=== PATIENT | male | born 1975 | race Caucasian/White ===

== ENCOUNTER → 2022-10-16 15:01 | Outpatient (BNVA) | payer OTHER, SELFPAY | PROVIDERS: Family Provider Nurse Practitioner Family; PCP Nurse Practitioner Family; Visit Provider Nurse Practitioner | DX: Z02.83 Encounter for blood-alcohol and blood-drug test (principal); M25.562 Pain in left knee | CPT/HCPCS: 73562; 80307 ==

== ENCOUNTER 2022-12-31 12:46 | Emergency (ER) | payer SELFPAY ==
[2022-12-31 13:01] VITALS: BP 128/76; PULSE 77; RESP 16; TEMP 36.8; O2SAT 97; BMI 34.0
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
[2022-12-31 13:43] VITALS: BP 124/84; PULSE 77; RESP 18; O2SAT 98
[2022-12-31 14:06] LABS: Basophils # 0.1 10^3/uL (0.0-0.1); Basophils % 0.4 %; Eosinophils % 0.2 %; Hematocrit 46.5 % (42.0-52.0); Hemoglobin 16.3 g/dL (11.7-16.6); Lymphocytes # 1.3 10^3/uL (0.8-4.8); Lymphocytes % 10.1 %; Mean Corpuscular HGB Conc 35.1 g/dL (30.0-36.0); Mean Corpuscular Hemoglobin 33.3 pg (28.0-34.0); Mean Corpuscular Volume 95.1 fl (80-94); Mean Platelet Volume 10.8 fL (7.4-10.4); Monocytes # 0.8 10^3/uL (0.2-0.9); Monocytes % 6.6 %; Neutrophils # 10.24 10^3/uL (1.8-7.7); Neutrophils % 82.2 %; Nucleated Red Blood Cells % 0 %; Platelet Count 245 10^3/cmm (130-400); Red Blood Count 4.89 10^6/uL (4.1-5.3); Red Cell Distribution Width 13.3 % (12.1-15.1); White Blood Count 12.5 10^3/uL (4.0-10.0)
[2022-12-31 14:31] VITALS: PULSE 69; RESP 16; O2SAT 99
[2022-12-31 14:33] LABS: Anion Gap 12.9 (5-19); Blood Urea Nitrogen 12 mg/dL (6-20); Calcium 9.6 mg/dL (8.5-10.5); Carbon Dioxide 28 mmol/L (22-29); Chloride 103 mmol/L (98-107); Glomerular Filtration Rate 80.8 mL/min (90-130); Glucose 102 mg/dL (65-115); Osmolality Calculated 290 mOsm/kg (285-295); Potassium 3.9 mmol/L (3.5-5.1); Sodium 140 mmol/L (136-145)
[2022-12-31 14:37] LABS: Add Urine Microscopic? YES; Bilirubin Urine Neg (Negative); Blood Urine Neg (Negative); Glucose Urine UA Norm (Normal); Ketones Urine Negative (Negative); Leukocyte Esterase Urine Negative (Negative); Nitrate Urine Negative (Negative); Protein Urine Trace (Negative); Specific Gravity, Urine 1.025 (1.005-1.030); Urine Appearance Hazy (CLEAR); Urine Color Yellow (Yellow); Urobilinogen Urine Norm (Negative); pH Urine 5 (5-7)
[2022-12-31 14:42] LABS: Amorphous Sediment Urine 2+ /hpf; Bacteria Urine TRACE /hpf; Hyaline Casts Urine 0-4 /lpf; Mucus Urine 3+ /hpf; RBC Urine 0-4 /hpf (0-2); Squamous Epithelial Cell Urine 0-4 /hpf (0-5); WBC Urine 0-4 /hpf (0-5)
[2022-12-31 14:43] LABS: Add Urine Culture? No
--- NOTE | 2023-01-01 09:43 | DCPLANNER ---
Addendum entered by Lara Campo 01/03/23 09:23: Patient had a follow up appointment scheduled for 01.02.[address] Bishop at ortho - patient did attend appointment. Original Note: accounting manager cpa had message to schedule a follow up appointment for patient with ortho. accounting manager cpa sent patients information to the front office staff at ortho. Patients information will be printed and reviewed. Clinic will call patient with appointment information.
== END 2022-12-31 14:33 | disposition home or self-care (01) ==
PROVIDERS: Emergency Provider Family Medicine; PCP Nurse Practitioner Family
DX: S52.502A Unspecified fracture of the lower end of left radius, initial encounter for closed fracture (principal); S62.002A Unspecified fracture of navicular [scaphoid] bone of left wrist, initial encounter for closed fracture; V94.89XA Other water transport accident, initial encounter
CPT/HCPCS: 36415; 71045; 72040; 73110; 73130; 80048; 81001; 85025; 99284

== ENCOUNTER 2023-01-02 06:00 | Outpatient (CLI) | payer SELFPAY | END 2023-01-02 06:01 | disposition home or self-care (01) | PROVIDERS: Visit Provider Student in an Organized Health Care Education/Training Program | DX: Z46.89 Encounter for fitting and adjustment of other specified devices (principal); S52.502D Unspecified fracture of the lower end of left radius, subsequent encounter for closed fracture with routine healing; X58.XXXD Exposure to other specified factors, subsequent encounter | CPT/HCPCS: 97760; L3982 ==

== ENCOUNTER → 2023-01-02 14:27 | Outpatient (BNVA) | payer SELFPAY | PROVIDERS: PCP Nurse Practitioner Family; Referring Provider Family Medicine; Visit Provider Student in an Organized Health Care Education/Training Program | DX: S52.502A Unspecified fracture of the lower end of left radius, initial encounter for closed fracture (principal); V94.0XXA Hitting object or bottom of body of water due to fall from watercraft, initial encounter | CPT/HCPCS: 73110 ==

== ENCOUNTER → 2023-01-09 14:52 | Outpatient (BNVA) | payer SELFPAY | PROVIDERS: Visit Provider Nurse Practitioner Family | DX: S52.502A Unspecified fracture of the lower end of left radius, initial encounter for closed fracture (principal); X58.XXXA Exposure to other specified factors, initial encounter | CPT/HCPCS: 73110 ==

== ENCOUNTER → 2023-01-16 14:39 | Outpatient (BNVA) | payer SELFPAY | PROVIDERS: Visit Provider Nurse Practitioner Family | DX: S52.502A Unspecified fracture of the lower end of left radius, initial encounter for closed fracture (principal); X58.XXXA Exposure to other specified factors, initial encounter | CPT/HCPCS: 73110 ==

== ENCOUNTER → 2023-02-10 14:41 | Outpatient (BNVA) | payer SELFPAY | PROVIDERS: Visit Provider Nurse Practitioner Family | DX: S52.502A Unspecified fracture of the lower end of left radius, initial encounter for closed fracture; X58.XXXA Exposure to other specified factors, initial encounter | CPT/HCPCS: 73110 ==

== ENCOUNTER 2023-02-10 15:28 | Outpatient (CLI) | payer SELFPAY | END 2023-02-10 15:29 | disposition home or self-care (01) | LOC: SPT 15:28 | PROVIDERS: Visit Provider Nurse Practitioner Family | DX: Z46.89 Encounter for fitting and adjustment of other specified devices (principal); S52.502D Unspecified fracture of the lower end of left radius, subsequent encounter for closed fracture with routine healing; X58.XXXD Exposure to other specified factors, subsequent encounter | CPT/HCPCS: L3908 ==

== ENCOUNTER → 2023-02-24 15:06 | Outpatient (BNVA) | payer SELFPAY | PROVIDERS: Visit Provider Nurse Practitioner Family | DX: S52.502A Unspecified fracture of the lower end of left radius, initial encounter for closed fracture (principal); X58.XXXA Exposure to other specified factors, initial encounter | CPT/HCPCS: 73110 ==